=== PATIENT | female | born 1965 | race Two or more races ===

== ENCOUNTER 2019-05-07 18:26 | Emergency (ER) | payer MEDICAID ==
[~2019-05-07] VITALS: Ht 160 cm; Wt 93.4 kg
[2019-05-07] MEDS ORDERED: IV NS 0.9% 1,000 ML BAG IV ONE ×2 (19:00→20:00)
[2019-05-07] MEDS ORDERED: IBUPROFEN 600 MG TABLET PO ONE ×2 (19:00→19:25)
[2019-05-07] MEDS ORDERED: ACETAMINOPHEN ES 500 MG TABLET PO ONE (19:00)
[2019-05-07 19:19] LABS: BASOPHILS # (AUTO) 0.1 /CMM (0.0-0.2); BASOPHILS % (AUTO) 0.4 % (0.0-2.0); EOSINOPHILS % (AUTO) 0.2 % (0.0-6.0); HEMATOCRIT 41 % (33-45); HEMOGLOBIN 13.7 g/dL (11.5-14.8); LYMPHOCYTES # (AUTO) 0.9 /CMM (0.8-4.8); LYMPHOCYTES % (AUTO) 5.9 % (20.0-44.0); MEAN CORPUSCULAR HGB CONC 33 g/dl (31.0-36.0); MEAN CORPUSCULAR VOLUME 90 fL (82-100); MONOCYTES # (AUTO) 0.3 /CMM (0.1-1.30); MONOCYTES % (AUTO) 2.1 % (2.0-12.0); NEUTROPHILS # (AUTO) 13.5 /CMM (1.8-8.9); NEUTROPHILS % (AUTO) 91.4 % (43.0-81.0); PLATELET COUNT (AUTO) 229 /CMM (150-450); RED BLOOD CELL COUNT(AUTO) 4.57 MIL/uL (4.0-5.2); WHITE BLOOD COUNT (AUTO) 14.8 K/uL (4.3-11.0)
--- NOTE | 2019-05-07 19:20 | NUR ---
[employer]IV[employer] COORDINATOR AT BEDSIDE FOR XRAY
[2019-05-07 19:25] LABS: APPEARANCE,URINE Clear (CLEAR); BILIRUBIN,URINE Negative (NEGATIVE); BLOOD, URINE Moderate Ery/uL (NEGATIVE); COLOR,URINE Yellow (YELLOW); KETONES,URINE Negative (NEGATIVE); LEUKOCYTE ESTERASE ,URINE Negative (NEGATIVE); NITRITE, URINE Negative (NEGATIVE); PH,URINE 5.5 (5.0-8.0); PROTEIN,URINE Negative (NEGATIVE); UGLUCOSE Negative (NEGATIVE); UROBILINOGEN,URINE 0.2 EU/dL (0.2)
[2019-05-07] MEDS ORDERED: ACETAMINOPHEN ES 500 MG TABLET ONE (19:25)
--- NOTE | 2019-05-07 19:25 | NUR ---
ASSESSED PT ON BED, AAOX4, NOT IN RESPIRATORY DISTRESS, HOOKED TO MONITOR, KEPT RESTED AND COMFORTABLE, AWAITING LAB RESULTS.
--- NOTE | 2019-05-07 19:28 | NUR ---
Transfer care report to Terrence DANIELLE
[2019-05-07 19:39] LABS: BACTERIA,URINE Few /HPF (None Seen); SQUAMOUS EPITHELIAL CELL,UR Few /HPF (None Seen); WBC,URINE 0-2 /HPF (0-3)
[2019-05-07 19:53] LABS: ALANINE AMINOTRANSFERASE 32 U/L (12-78); ALBUMIN 3.9 g/dL (3.4-5.0); ALKALINE PHOSPHATASE 60 U/L (46-116); ASPARTATE AMINOTRANSFERASE 30 U/L (15-37); BILIRUBIN,DIRECT 0.2 mg/dL (0.0-0.2); BILIRUBIN,TOTAL 0.9 mg/dL (0.2-1.0); CALCIUM, SERUM 8.6 mg/dL (8.5-10.1); CARBON DIOXIDE 25 mmol/L (21-32); CHLORIDE 98 mmol/L (98-107); CREATININE 0.7 mg/dL (0.6-1.3); GLUCOSE 107 mg/dL (74-106); POTASSIUM 3.5 mmol/L (3.5-5.1); SODIUM SERUM 133 mmol/L (136-145); UREA NITROGEN, BLOOD 16 mg/dL (7-18)
--- NOTE | 2019-05-07 20:19 | NUR ---
REINSERTED IV LINE G20 R FOREARM.
--- NOTE | 2019-05-07 20:53 | NUR ---
PT IS WHEELED TO CT SCAN VIA [facility].
[2019-05-07] MEDS ORDERED: LORAZEPAM 1 MG TABLET ONE (21:37)
[2019-05-07] MEDS ORDERED: CEFTRIAXONE 1GM BAG (ER ONLY) 50 ML IV ONE (21:57)
[2019-05-07] MEDS ORDERED: LORAZEPAM INJ 2 MG/ML VIAL IV ONE (22:00)
[2019-05-07] MEDS ORDERED: CEFTRIAXONE 1GM BAG (ER ONLY) 1 GM/50 ML PIGGYBACK IV ONE (22:00)
[2019-05-07] MEDS ORDERED: LORAZEPAM 1 MG TABLET PO ONE ×2 (22:00)
[2019-05-07 22:39] VITALS: BP 127/76
--- NOTE | 2019-05-07 22:39 | NUR ---
IV removed. Catheter intact and site benign. Pressure and 4x4 applied to site. No bleeding noted. Patient discharged to home in stable condition. Written and verbal after care instructions given. Patient verbalizes understanding of instruction.
== END 2019-05-07 22:40 | disposition home or self-care (01) ==
LOC: ER 18:26
DX: N39.0 Urinary tract infection, site not specified (principal); I10 Essential (primary) hypertension
CPT/HCPCS: 36415; 71045; 74176; 80048; 80076; 81001; 83605 ×2; 84145; 85025; 87040 ×2; 96365; 99284; J0696; J7030 ×2; 81000-TC

== ENCOUNTER 2022-07-07 03:04 | Emergency (ER) | payer MEDICAID ==
[~2022-07-07] VITALS: Ht 167.6 cm; Wt 90.7 kg
--- NOTE | 2022-07-07 03:32 | NUR ---
BIBSELF C/O RIGHT BACK PAIN RAD TO RIGHT LEG X 1 DAY. PT A/OX4. TOLERATING R/A WELL WITH NO RESP DISTRESS; RR EVEN AND NON LABORED. SAFETY MEASURES IN PLACE.
--- NOTE | 2022-07-07 03:42 | NUR ---
DR. LUKE PANIAGUA AT PT'S BEDSIDE
--- NOTE | 2022-07-07 03:55 | NUR ---
[employer] P[employer] OPERATOR AT PT'S BEDSIDE
[2022-07-07] MEDS ORDERED: LIDOCAINE 5% (PATCH) 1 EA PATCH TP ONE (03:58)
[2022-07-07] MEDS ORDERED: CYCLOBENZAPRINE 10 MG TABLET ONE (04:00)
[2022-07-07] MEDS ORDERED: KETOROLAC TROMETHAMINE INJ 30 MG/ML VIAL ONE (04:00)
[2022-07-07] MEDS ORDERED: KETOROLAC TROMETHAMINE INJ 60 MG/2 ML VIAL IM ONE (04:00)
[2022-07-07] MEDS ORDERED: CYCLOBENZAPRINE 10 MG TABLET PO ONE (04:00)
[2022-07-07] MEDS ORDERED: LIDOCAINE 5% (PATCH) 1 EA PATCH TP SCH (04:00)
[2022-07-07] MEDS ORDERED: CYCL5TAB PO ×2 (05:49→05:51)
[2022-07-07] MEDS ORDERED: LIDO30AD10 TP ×2 (05:49→05:51)
--- NOTE | 2022-07-07 06:11 | NUR ---
Patient discharged to home in stable condition. Written and verbal after care instructions given. Patient verbalizes understanding of instruction.
[2022-07-07 06:15] VITALS: BP 121/75
== END 2022-07-07 06:17 | disposition home or self-care (01) ==
LOC: ER 03:07
DX: S39.012A Strain of muscle, fascia and tendon of lower back, initial encounter (principal); I10 Essential (primary) hypertension; Z88.0 Allergy status to penicillin; Z88.8 Allergy status to other drugs, medicaments and biological substances; Z60.2 Problems related to living alone; W01.0XXA Fall on same level from slipping, tripping and stumbling without subsequent striking against object, initial encounter; Y93.89 Activity, other specified; Y92.89 Other specified places as the place of occurrence of the external cause; Y99.8 Other external cause status
CPT/HCPCS: 99283; 96372; 72110; J1885

== ENCOUNTER 2022-08-01 12:04 | Emergency (ER) | payer MEDICAID ==
[~2022-08-01] VITALS: Ht 154.9 cm; Wt 81.6 kg
[~2022-08-01 12:04] MED LIST: CYCL5TAB PO; LIDO30AD10 TP
--- NOTE | 2022-08-01 12:05 | NUR ---
BIB C/O L SIDED UPPER THIGH SHARP PAIN SINCE LAST NIGHT NO RELIEF FROM PAIN MEDCATION. PLACED IN BED, AAOX4, IN PAIN 8/10 PS
[2022-08-01] MEDS ORDERED: GABAPENTIN 300 MG CAPSULE ONE (13:36)
[2022-08-01] MEDS ORDERED: KETOROLAC TROMETHAMINE INJ 30 MG/ML VIAL ONE (13:36)
[2022-08-01] MEDS: GABAPENTIN 100 MG CAPSULE PO ONE (13:40)
[2022-08-01] MEDS: KETOROLAC TROMETHAMINE INJ 30 MG/ML VIAL IM ONE (13:41)
--- NOTE | 2022-08-01 14:06 | NUR ---
X-RAY TECH AT BEDSIDE
[2022-08-01] MEDS ORDERED: ACETAMINOPHEN ES 500 MG TABLET ONE (14:57)
[2022-08-01] MEDS: ACETAMINOPHEN ES 500 MG TABLET PO ONE (14:59)
--- NOTE | 2022-08-01 18:00 | NUR ---
Patient discharged to home in stable condition. Written and verbal after care instructions given. Patient verbalizes understanding of instruction.
[2022-08-01 18:03] VITALS: BP 110/80
== END 2022-08-01 18:00 | disposition home or self-care (01) ==
LOC: ER 12:09
DX: M79.605 Pain in left leg (principal); I10 Essential (primary) hypertension; Z88.0 Allergy status to penicillin; Z88.8 Allergy status to other drugs, medicaments and biological substances; Z60.2 Problems related to living alone; Z79.899 Other long term (current) drug therapy
CPT/HCPCS: 99284; 96372; 73552; 73560; J1885